=== PATIENT | male | born 1995 | race Caucasian/White ===

== ENCOUNTER → 2016-11-24 | Outpatient (CLI) | payer OTHER ==
--- NOTE | 2016-11-25 14:29 | MR ---
MRI of the Right Wrist Clinical Indications: Dorsal wrist pain, especially with extension. Technique: Sagittal, axial, and coronal MR sequences of the wrist are performed. Findings: There is moderate chondral thinning of the distal radius at the articulation with the ekaterina te, associated with mild subcortical bone marrow edema within the lunate. Scapholunate ligament appea rs intact, with slight increase signal within the central zone, compatible with mild mucoid degenerat ion. Dorsal band is intact. Articular disk of the TFCC appears intact without tear. There is mild focal extensor carpi ulnaris tendinosis of the ulnar styloid. Extensor tendons are othe rwise normal. Flexor tendons appear intact. Dorsal and volar extrinsic ligaments appear intact. The carpal tunnel is normal in appearance. No periarticular fluid collection is identified to suggest the presence of a periarticular ganglia. Impression: 1. Focal chondral thinning involving the articulation of the radius with the lunate. 2. 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 3. 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
== END ==
LOC: FIMAGING 14:52
PROVIDERS: ATTEND Orthopaedic Surgery Hand Surgery
DX: M19.031 Primary osteoarthritis, right wrist (principal); M77.8 Other enthesopathies, not elsewhere classified

== ENCOUNTER → 2016-12-22 | Outpatient (CLI) | payer OTHER | LOC: FIMAGING 15:30 | PROVIDERS: ATTEND Orthopaedic Surgery Hand Surgery | DX: S63.512A Sprain of carpal joint of left wrist, initial encounter (principal) ==